=== PATIENT | male | born 1930 | race Caucasian/White ===

== ENCOUNTER → 2016-06-11 | Outpatient (CLI) | payer MEDICARE, BC ==
[~2016-06-11] MED LIST: BACTRIM DS TAB1 EACH PO; CALCIUM ANTACI PO; FEOSOL-DPS325 MG PO; HCTZ12.5 MG PO; NORVASC5 MG PO; VITAMIN D31000 UNIT PO
== END | disposition home or self-care (01) ==
LOC: RAD.S 10:14
DX: L97.529 Non-pressure chronic ulcer of other part of left foot with unspecified severity (principal); I70.25 Atherosclerosis of native arteries of other extremities with ulceration; M85.80 Other specified disorders of bone density and structure, unspecified site